=== PATIENT | female | born 1940 | race Caucasian/White ===

== ENCOUNTER → 2018-02-15 | Outpatient (CLI) | payer MEDICARE, BC | LOC: M.RAD 09:44 | DX: Z12.31 Encounter for screening mammogram for malignant neoplasm of breast (principal) ==

== ENCOUNTER → 2019-02-24 | Outpatient (CLI) | payer MEDICARE, BC | LOC: M.RAD 09:24 | DX: Z12.31 Encounter for screening mammogram for malignant neoplasm of breast (principal) ==

== ENCOUNTER 2019-03-12 11:01 | Emergency (ER) | payer MEDICARE, BC ==
[~2019-03-12] VITALS: Ht 165.1 cm; Wt 99.8 kg
[2019-03-12 11:06] VITALS: BP 158/75
[2019-03-12] MEDS ORDERED: OMEPRAZOLE 20 M20 M1 PO (11:12)
[2019-03-12] MEDS ORDERED: EFFEXOR XR75 MG PO (11:12)
[2019-03-12] MEDS ORDERED: SULINDAC 200MG200 M1 PO (11:12)
[2019-03-12] MEDS ORDERED: VITAMIN D1000 UNI1 PO (11:13)
[2019-03-12] MEDS ORDERED: COZAAR 25 MG TA25 M1 PO (11:13)
[2019-03-12] MEDS ORDERED: LIPITOR 20 MG T20 M1 PO (11:13)
[2019-03-12] MEDS ORDERED: VITAMIN B-12500 MCG PO (11:14)
[2019-03-12] MEDS ORDERED: GLUCOSAMINE HC500 MG PO (11:14)
[2019-03-12] MEDS ORDERED: METFORMIN HCL500 MG PO (11:14)
[2019-03-12] MEDS ORDERED: LASIX 20 MG TAB20 MG PO (11:15)
[2019-03-12] MEDS ORDERED: CARVEDILOL3.125 MG PO (11:15)
[2019-03-12] MEDS ORDERED: SPIRONOLACTONE25 M1 PO (11:15)
[2019-03-12] MEDS ORDERED: CIPROFLOXIN HC2.5 M1 OPHTHALMIC (11:34)
== END 2019-03-12 11:43 | disposition home or self-care (01) ==
LOC: M.ERS 11:01
DX: S05.01XA Injury of conjunctiva and corneal abrasion without foreign body, right eye, initial encounter (principal); I50.9 Heart failure, unspecified; Z88.1 Allergy status to other antibiotic agents; Z88.8 Allergy status to other drugs, medicaments and biological substances; Z91.010 Allergy to peanuts; X58.XXXA Exposure to other specified factors, initial encounter; Y93.9 Activity, unspecified; Y92.89 Other specified places as the place of occurrence of the external cause; Y99.8 Other external cause status

== ENCOUNTER → 2020-07-05 | Outpatient (CLI) | payer MEDICARE, BC ==
[~2020-07-05] MED LIST: CARVEDILOL3.125 MG PO; CIPROFLOXIN HC2.5 M1 OPHTHALMIC; COZAAR 25 MG TA25 M1 PO; EFFEXOR XR75 MG PO; GLUCOSAMINE HC500 MG PO; LASIX 20 MG TAB20 MG PO; LIPITOR 20 MG T20 M1 PO; METFORMIN HCL500 MG PO; OMEPRAZOLE 20 M20 M1 PO; SPIRONOLACTONE25 M1 PO; SULINDAC 200MG200 M1 PO; VITAMIN B-12500 MCG PO; VITAMIN D1000 UNI1 PO
== END ==
LOC: M.RAD 07-02 13:07
PROVIDERS: ATTEND Family Medicine
DX: Z12.31 Encounter for screening mammogram for malignant neoplasm of breast (principal); Z13.820 Encounter for screening for osteoporosis